=== PATIENT | female | born 1950 | race African-American/Black ===

== ENCOUNTER 2021-04-16 11:40 | Emergency (ER) | payer OTHER ==
[2021-04-16 12:10] VITALS: BP 185/73; PULSE 100; TEMP 98.5; BMI 32.5
[2021-04-16 14:42] LABS: BASO % 0.5 % (0-2.0); EOS % 0.8 % (0-4.5); HEMATOCRIT 34.9 % (32.4-45.2); HEMOGLOBIN 11.9 GM/dL (10.7-15.3); LYMPH % 20.1 % (8-40); MCHC 34.2 g/dl (32.0-36.0); MEAN CELL VOLUME 90.6 fl (80-96); MONO % 6.7 % (3.8-10.2); NEUT % 71.9 % (42.8-82.8); PLATELET COUNT 301 10^3/uL (134-434); RBC 3.85 M/mm3 (3.60-5.2); RDW 14.9 % (11.6-15.6); WHITE BLOOD COUNT 9.9 K/mm3 (4.0-10.0)
[2021-04-16 15:03] LABS: CALCIUM 8.8 mg/dL (8.5-10.1)
[2021-04-16 15:04] LABS: ALBUMIN 3.4 g/dl (3.4-5.0); BLOOD UREA NITROGEN 23.2 mg/dL (7-18)
[2021-04-16 15:06] LABS: INR 1.12 (0.83-1.09); PROTHROMBIN TIME (PATIENT) 13.1 SEC (9.7-13.0)
[2021-04-16 15:07] LABS: CREATININE 1.5 mg/dL (0.55-1.3)
[2021-04-16 15:08] LABS: BILIRUBIN,TOTAL 0.5 mg/dL (0.2-1); TOT PROT 7.4 g/dl (6.4-8.2)
[2021-04-16 15:09] LABS: ACTIVATED PTT 24.6 SECONDS (25.2-36.5)
== END 2021-04-16 16:52 | disposition home or self-care (01) ==
LOC: JER 11:40
DX: N93.9 Abnormal uterine and vaginal bleeding, unspecified (principal)
CPT/HCPCS: 36415; 76856-TC; 80053; 85025; 85610; 85730; 86850; 86900; 86901; 99284-25; C9803; U0003; U0005

== ENCOUNTER 2021-05-11 04:43 | Day surgery (SDC) | payer OTHER ==
[2021-05-07 13:38] VITALS: BMI 32.9
[2021-05-11] MEDS ORDERED: PROPOFOL 20 ML ONE ×2 (10:35→11:11)
[2021-05-11] MEDS ORDERED: ceFAZolin SODIUM 1 GM VIAL IVPB ONE (11:08)
[2021-05-11] MEDS ORDERED: LIDOCAINE HCL/PF 2% SDV 5ML VIAL ONE (11:20)
[2021-05-11] MEDS ORDERED: DEXAMETHASONE SOD PHOSPHATE 4 MG/1 ML VIAL ONE (11:20)
[2021-05-11] MEDS ORDERED: GLYCOPYRROLATE 0.2 MG/1 ML VIAL ONE (11:20)
[2021-05-11] MEDS ORDERED: ceFAZolin SODIUM 1 GM VIAL ONE (11:20)
[2021-05-11] MEDS ORDERED: KETOROLAC TROMETHAMINE 30 MG/1 ML VIAL ONE (11:35)
[2021-05-11] MEDS ORDERED: oxyCODONE HCL 5 MG TABLET PO PRN ×2 (11:36)
[2021-05-11] MEDS ORDERED: ONDANSETRON 4 MG/2 ML VIAL IVPUSH PRN (11:36)
[2021-05-11] MEDS ORDERED: LACTATED RINGERS SOLUTION 1,000 ML IV SCH (11:45)
[2021-05-11 13:03] VITALS: TEMP 97.2
[2021-05-11 14:38] VITALS: BP 136/57; PULSE 72
== END 2021-05-11 14:20 | disposition home or self-care (01) ==
LOC: JASU-SURG 04:43
PROVIDERS: ATTEND Obstetrics & Gynecology
PROC: 0UB98ZZ Excision of Uterus, Via Natural or Artificial Opening Endoscopic (ICD-10-PCS; principal; 2021-05-11 10:00)
PROC: 0UDB8ZX Extraction of Endometrium, Via Natural or Artificial Opening Endoscopic, Diagnostic (ICD-10-PCS; 2021-05-11 10:00)
DX: N95.0 Postmenopausal bleeding (principal); D25.9 Leiomyoma of uterus, unspecified; I10 Essential (primary) hypertension; E11.9 Type 2 diabetes mellitus without complications
CPT/HCPCS: 82962; 88305-TC; 88307-TC; 94760